=== PATIENT | male | born 1945 | race Caucasian/White ===

== ENCOUNTER 2019-04-17 06:42 | Day surgery (SDC) | payer MEDICARE ==
[2019-04-14 09:22] VITALS: BMI 32.5
[2019-04-17 07:39] LABS: #Basophils 0.1 thou/uL (0.0-0.2); #Eosinphils 0.1 thou/uL (0.0-0.7); #Lymphocytes 2.4 thou/uL (1.20-3.40); #Monocytes 0.4 thou/uL (0.11-0.59); #Neutrophils 7.2 thou/uL (1.40-6.50); %Basophils 0.6 % (0.0-1.0); %Eosinophils 1.3 % (0.0-10.0); %Lymphocytes 23.3 % (21.0-51.0); %Neutrophils 70.8 % (42.0-75.0); Mean Corpuscular HGB CONC 33.1 g/dL (32.0-36.0); Mean Corpuscular Hemoglobin 30.7 pg (27.0-31.0); Mean Corpuscular Volume 92.9 fL (78.0-98.0); Platelet Count 255 thou/uL (130-400); RBC Distribution Width 12.1 % (11.5-14.5); Red Blood Cell (RBC) Count 5.21 mill/uL (4.70-6.10); White Blood Cell (WBC) Count 10.2 thou/uL (4.8-10.8)
[2019-04-17 07:50] LABS: Anion Gap 14 mmol/L (10-20); BUN (Urea Nitrogen) 10 mg/dL (8.4-25.7); Calc. Creatinine Clearance 99 mL/min (70-130); Calcium 8.6 mg/dL (7.8-10.44); Carbon Dioxide 26 mmol/L (23-31); Chloride 104 mmol/L (98-107); Estimated GFR-MDRD 79; Glucose 135 mg/dL (83-110); Potassium 4.2 mmol/L (3.5-5.1); Sodium 140 mmol/L (136-145)
[2019-04-17 07:55] LABS: PTT 30.9 SEC (22.9-36.1); Prothrombin Time 13.1 SEC (12.0-14.7)
[2019-04-17] MEDS ORDERED: Iothalamate Meglumine 60% 50 ML VIAL FS ONE (08:40)
[2019-04-17] MEDS ORDERED: Fentanyl 100 MCG/2 ML VIAL ONE ×2 (08:49→10:55)
[2019-04-17] MEDS ORDERED: mitoMYcin 40 MG in Sterile Water 20 ML IV SCH (09:30)
--- NOTE | 2019-04-17 09:58 | RAD ---
EXAM: XR IVP Retrograde PROVIDED CLINICAL HISTORY: Bladder tumor/hematuria. COMPARISON: None FINDINGS: Bilateral retrograde urograms are performed. There is a filling defect seen within the mid right uret er which may represent a gas bubble. However, no additional imaging was obtained to evaluate for movement or resolution of this filling defect. The bilateral renal collecting systems and ureters oth erwise demonstrate a normal appearance without additional filling defect, and there is no hydronephrosis or hydroureter. There is only minimal opacification of the urinary bladder. IMPRESSION: Small filling defect in the mid right ureter probably related to a gas bubble, but additional imaging was not performed to confirm this finding. There is no hydronephrosis or hydroureter, and the bilateral renal collecting systems and ureters otherwise have a normal appearance. Correlation with i ntraoperative findings is recommended.
[2019-04-17] MEDS ORDERED: Glycopyrrolate 0.2 MG/ML 5 ML SYRINGE ONE (10:06)
[2019-04-17] MEDS ORDERED: PROPOFOL 200 MG/20 ML VIAL ONE (10:06)
[2019-04-17] MEDS ORDERED: Rocuronium Bromide 10 MG/ML (10ML VIAL) ONE (10:06)
[2019-04-17] MEDS ORDERED: Ondansetron PF 4 MG/2 ML Vial ONE (10:06)
[2019-04-17] MEDS ORDERED: Lidocaine 1% PF 5 ML VIAL ONE (10:06)
[2019-04-17] MEDS ORDERED: Morphine 4 MG/ML VIAL ONE (11:45)
[2019-04-17] MEDS ORDERED: Morphine 2 MG/ML SYRINGE ONE (12:18)
[2019-04-17] MEDS ORDERED: HYDROcodone/Acetaminophen 5/325 mg Tablet ONE (12:45)
--- NOTE | 2019-04-17 15:31 | OP ---
DATE OF PROCEDURE: 04/17/2019 PREOPERATIVE DIAGNOSIS: Bladder lesion. POSTOPERATIVE DIAGNOSIS: Bladder lesion. PROCEDURE PERFORMED: Cysto transurethral resection of a bladder tumour, bilateral retrogrades, and exam under anesthesia. ANESTHETIC: General. ESTIMATED BLOOD LOSS: Less than 50. DRAINS: An 18-[place] Ravi catheter three way with both plugged at the end of the case as we placed mitomycin-C. FINDINGS: A 3 cm papillary tumor coming off the left sidewall just lateral to the left ureteral orifice, but not involving it. Retrograde studies were normal. Path sent is bladder tumor, superficial and deep. FINDINGS: Normal retrograde studies, normal exam under anesthesia. DESCRIPTION OF PROCEDURE: Obtained written and verbal consent from the patient after receiving IV antibiotics. He was taken to the operating suite. He was placed in the supine position on the treatment table. PlexiPulses were placed in his lower extremities and turned on. He was given a general anesthetic and oral intubation. He was placed in the dorsal lithotomy position and sterilely prepped and draped. The fluoroscopy unit was brought in and positioned over his abdomen for retrograde studies. Cystoscopy was performed with a 22-[place] sheath. This was well lubricated and advanced under direct vision through the male urethra into the urinary bladder with the aid of a 30-degree lens and a video camera and monitor. The bladder was filled and emptied number of times and examined with both the 30 and the 70-degree lens with the findings above. I could not see the left ureteral orifice because of tumor draped over it. The instruments were removed. A 24-[place] resectoscope sheath with visual obturator was passed well lubricated through the male urethra into the bladder with the aid of a 30-degree lens and video camera and monitor. An REHAPP resectoscope with the Gyrus generator and Gyrus bladder tumor loop were brought in. We used a 30-degree lens and a video camera and monitor. We resected this tumor back so it was level with the bladder wall and then the Ellik'd this specimen out and sent as superficial tumor. The left ureteral orifice was identified and was not involved with the tumor. There was a good probably 2 cm of normal tissue between it. We then resected some deep specimens and sent these off as deep. We cauterized to obtain hemostasis. We then removed these instruments and went back to the 22-[place] sheath and was replaced back through the male urethra into the bladder. We brought in a cone-tipped catheter, flushed with contrast and shot a left retrograde study and a right retrograde study using about 10 to 12 mL of contrast each obtained drainage films. There was good hemostasis. A Ravi catheter was placed. We irrigated it out with some sterile water. It was clear. Then, we passed the mitomycin C through this catheter and plugged both it and the irrigation port and leave them plugged until he gets to the recovery room in about 30 minutes or so after unplugged. Rectal exam was done. He had noticed 3 dimensional mass in the bladder. He had a benign feeling prostate that was enlarged without nodularity. He was taken out of the dorsal lithotomy position, awakened, extubated, and taken by stretcher to the recovery room. Job ID: [id number]
--- NOTE | 2019-04-17 23:30 | EKG ---
Test Reason : PREOP Blood Pressure : / mmHG Vent. Rate : 052 BPM Atrial Rate : 052 BPM P-R Int : 170 ms QRS Dur : 086 ms QT Int : 460 ms P-R-T Axes : 034 -31 048 degrees QTc Int : 427 ms Sinus bradycardia Left axis deviation Abnormal ECG When compared with ECG of 30-AUG-2010 12:05, T wave inversion no longer evident in Anterior leads Confirmed by Aparna GANDARA ([id number]) on 04/17/2019 11:29:32 PM Referred By: ROCÍO Confirmed By:Aparna GANDARA
== END 2019-04-17 14:05 | disposition home or self-care (01) ==
LOC: SDC 06:42
PROVIDERS: ATTEND Urology
PROC: 0TBB8ZX Excision of Bladder, Via Natural or Artificial Opening Endoscopic, Diagnostic (ICD-10-PCS; principal; 2019-04-17)
PROC: BT141ZZ Fluoroscopy of Kidneys, Ureters and Bladder using Low Osmolar Contrast (ICD-10-PCS; 2019-04-17)
DX: C67.2 Malignant neoplasm of lateral wall of bladder (principal); J44.9 Chronic obstructive pulmonary disease, unspecified; F17.200 Nicotine dependence, unspecified, uncomplicated; Z86.73 Personal history of transient ischemic attack (TIA), and cerebral infarction without residual deficits
CPT/HCPCS: 52005; 52235; 74420; 80048; 85025; 85610; 85730; 88307; 93005; C1758; J9280; 36415; 93010; J0690; J2001; J2270; J2405; J2704; J3010

== ENCOUNTER 2019-08-24 06:36 | Outpatient (CLI) | payer MEDICARE, OTHER ==
[2019-08-24 14:30] LABS: Mean Corpuscular HGB CONC 33.8 g/dL (32.0-36.0); Mean Corpuscular Hemoglobin 32.5 pg (27.0-31.0); Mean Platelet Volume 7.9 fL (7.4-10.4); Platelet Count 215 thou/uL (130-400); RBC Distribution Width 12.1 % (11.5-14.5); Red Blood Cell (RBC) Count 4.92 mill/uL (4.70-6.10); White Blood Cell (WBC) Count 8.5 thou/uL (4.8-10.8)
[2019-08-24 14:46] LABS: PTT 30.4 sec (22.9-36.1); Prothrombin Time 12.8 sec (12.0-14.7)
[2019-08-24 14:52] LABS: Anion Gap 10 mmol/L (10-20); BUN (Urea Nitrogen) 10 mg/dL (8.4-25.7); Calc. Creatinine Clearance 0 mL/min (70-130); Calcium 8.8 mg/dL (7.8-10.44); Carbon Dioxide 29 mmol/L (23-31); Chloride 103 mmol/L (98-107); Estimated GFR-MDRD 78; Glucose 94 mg/dL (83-110); Potassium 4.1 mmol/L (3.5-5.1); Sodium 138 mmol/L (136-145)
[2019-08-25 11:17] LABS: SARS-CoV-2 MS2 Positive; SARS-CoV-2 N Gene Negative; SARS-CoV-2 S Gene Negative; SARS-CoV-2 orf1ab Negative
== END 2019-08-24 06:37 | disposition home or self-care (01) ==
LOC: LABBT 06:36
PROVIDERS: ATTEND Urology
DX: Z01.812 Encounter for preprocedural laboratory examination (principal); Z11.59 Encounter for screening for other viral diseases; C67.9 Malignant neoplasm of bladder, unspecified
CPT/HCPCS: 80048; 85027; 85610; 85730; U0003; 87635

== ENCOUNTER 2019-08-28 05:53 | Day surgery (SDC) | payer MEDICARE ==
[2019-08-24 12:44] VITALS: BMI 31.3
[2019-08-28] MEDS ORDERED: Fentanyl 100 MCG/2 ML VIAL ONE (06:34)
[2019-08-28] MEDS ORDERED: Albuterol Sulfate 2.5 mg/3 ml Neb ONE (07:22)
--- NOTE | 2019-08-28 11:51 | OP ---
DATE OF PROCEDURE: 08/28/2019 PREOPERATIVE DIAGNOSIS: History of transitional cell carcinoma of the bladder. POSTOPERATIVE DIAGNOSIS: History of transitional cell carcinoma of the bladder. PROCEDURE PERFORMED: Cystoscopy, bladder biopsy. ANESTHETIC: General. ESTIMATED BLOOD LOSS: Minimal. FINDINGS: He had some necrotic tissue over his old tumor site on the left wall. He had 2 ureteral orifices in normal position. He had no evidence of recurrent bladder tumor. He had a moderate lateral lobe hypertrophy. DESCRIPTION OF PROCEDURE: After obtaining written and verbal consent from the patient, after receiving IV antibiotics, he was taken to the operating suite. He was placed in a supine position on the treatment table. PlexiPulses were placed on his lower extremities and turned on. He was given a general anesthetic and oral obturator intubation. He was placed in the dorsal lithotomy position and sterilely prepped and draped. Cystoscopy was performed with a 22-Amharic sheath. This was passed under direct vision through the male urethra into the bladder with a 30-degree lens and a video camera and monitor. The bladder was filled and emptied number of times and was examined with both the 30- and the 70-degree lens with the findings above. Using a 30-degree lens, we brought in some graspers and removed the necrotic tissue overlying the prior tumor site. There was some tissue that really had not healed that well in this region. We did some biopsies of this deep area, and then, we did some random bladder biopsies. Bugbee electrode to cauterize these sites. Bladder was drained. The instruments were removed. The catheter was not left indwelling. He was awakened, extubated, and taken by stretcher to recovery room. Job ID: [id number]
[2019-08-28] MEDS ORDERED: Ondansetron PF 4 MG/2 ML Vial ONE (13:35)
[2019-08-28] MEDS ORDERED: PROPOFOL 200 MG/20 ML VIAL ONE (13:35)
[2019-08-28] MEDS ORDERED: Lidocaine 1% PF 5 ML VIAL ONE (13:35)
== END 2019-08-28 11:05 | disposition home or self-care (01) ==
LOC: SDC 05:53
PROVIDERS: ATTEND Urology
PROC: 0TBB8ZX Excision of Bladder, Via Natural or Artificial Opening Endoscopic, Diagnostic (ICD-10-PCS; principal; 2019-08-28)
DX: N30.80 Other cystitis without hematuria (principal); N40.0 Benign prostatic hyperplasia without lower urinary tract symptoms; J44.9 Chronic obstructive pulmonary disease, unspecified; Z85.51 Personal history of malignant neoplasm of bladder; Z86.73 Personal history of transient ischemic attack (TIA), and cerebral infarction without residual deficits; Z79.2 Long term (current) use of antibiotics; Z79.82 Long term (current) use of aspirin; Z88.4 Allergy status to anesthetic agent
CPT/HCPCS: 88305; 93005; 93010; J0690; J2001; J2405; J2704; J3010; J7611

== ENCOUNTER 2020-03-20 14:42 | Inpatient (IN) | payer MEDICARE ==
[2020-03-20 15:59] VITALS: BMI 32.5
[2020-03-20] MEDS ORDERED: Communication Order-Pharmacy FS SCH (16:16)
--- NOTE | 2020-03-20 16:53 | RAD ---
Portable frontal chest radiograph: 03/20/2020 COMPARISON: 02/08/2020 HISTORY: Evaluate chest prior to open heart surgery FINDINGS: There is prominence of the cardiac silhouette. There is no pneumothorax or pleural fluid. N o focal consolidation or alveolar edema. Bilateral AC joint degenerative change. IMPRESSION: No radiographic evidence of acute cardiopulmonary disease.
--- NOTE | 2020-03-20 17:15 | CON ---
DATE OF CONSULTATION: HISTORY OF PRESENT ILLNESS: This is a 74-year-old gentleman with cardiovascular risk factors of smoking a pack of cigarettes a day currently as well as a history of dyslipidemia with no history of hypertension. He has been complaining of dyspnea on exertion, which has worsened, and he was evaluated by Dr. Coleman and found today on catheterization to have about 80+ percent stenosis of the LAD at the takeoff of a sizable diagonal, the ramus and circumflex were fairly normal, and the right coronary artery had diffuse disease, probably as much as 50% prior to a PDA. There may have been some ostial PDA disease. Ejection fraction was normal. PAST MEDICAL HISTORY: Includes: 1. Bladder cancer, treated by Dr. Chen, with surveillance endoscopies every 3 months. 2. He also has some COPD and uses an inhaler for occasional wheezing and he does admit to a chronic cough. 3. He also has a history of enlarged prostate, for which he takes medication and he does have nocturia x1. 4. He has a past medical history of stroke, diagnosed as vertigo at the [facility], but diagnosed as a CVA by Dr. Kennedy. He had a carotid ultrasound per Dr. Coleman in 2016, which did not show any significant disease and he has not been placed on any antiplatelet agents in the past. SOCIAL HISTORY: The patient is retired, accompanied by his . HOME MEDICATIONS: Include: 1. Inhaler. 2. Flomax 0.4 a day. 3. Atorvastatin half tablet, but he does not know the dosage, once a day. PAST SURGICAL HISTORY: Includes: 1. Removal of a lipoma from the left flank as well as a benign tumor from his right neck. 2. Previous cholecystectomy. REVIEW OF SYSTEMS: Otherwise includes chronic back pain, and because of this, he has a very sedentary lifestyle. He does admit to cough and nocturia x1. No significant weakness related to his stroke at this time. PHYSICAL EXAMINATION: GENERAL: On examination, he is an alert and cooperative gentleman, overweight. NECK: No carotid bruits on exam. CARDIAC: Regular rate and rhythm with no murmurs. LUNGS: Clear to auscultation anteriorly, but his chest AP diameter is increased. ABDOMEN: Obese, firm, and nontender and he does have a small probably 1 cm sized hernia in the right rectus area about 3 to 4 cm below the tip of the xiphoid, which is easily reducible. EXTREMITIES: He has palpable femoral and popliteal pulses and I do not appreciate pedal pulses. He has no peripheral edema. PLAN: At this time is for coronary bypass grafting to the LAD, diagonal, and PDA tomorrow. Job ID: [id number]
--- NOTE | 2020-03-20 17:46 | PDOC.HHP ---
Hospitalist HPI - History of Present Illness Shortness of breath History of Present Illness: Patient is a pleasant 74-year-old gentleman who was seen in the hospital as a direct admission. He has been having shortness of breath over the last couple of months. The shortness of breath has been worsening. Shortness of breath is worse with exertion. Patient denies any chest pain. He denies any nausea or vomiting. He denies any abdominal pain. He underwent coronary angiography today and was found to have severe coronary artery disease. I received a call from his metal baler earlier today, and patient is being admitted to the hospital as a direct admission for coronary artery bypass graft surgery. Hospitalist ROS - Review of Systems Respiratory: reports: shortness of breath, SOB with excertion. denies: cough, dry, hemoptysis, pleuritic pain, sputum, wheezing Cardiovascular: denies: chest pain, palpitations, orthopnea, paroxysmal noc. dyspnea, edema, light headedness All other systems reviewed; all pertinent +/- noted in HPI/Subj - Medication Medications: Allergies: Procaine and penicillin Home medications: Albuterol inhalation as needed, atorvastatin 40 mg daily, aspirin 81 mg daily and Flomax 0.4 mg daily. Hospitalist History - Past Medical History Other Medical History: Past medical history: Dyslipidemia, COPD, benign prostate hypertrophy, cerebrovascular accident, TIA x2, shingles as a teenager, bladder cancer status post resection Surgical history: Surgery for bladder cancer, cholecystectomy, cataract surgery and parotid tumor surgery. Family history: Coronary artery disease in his father, who from pancreatic cancer. Paternal grandfather had CVA. Social history: Patient is a current smoker. He denies alcohol use or recreational drug use. - Exam General Appearance: awake alert Eye: anicteric sclera ENT: moist mucosa Neck: supple Heart: RRR Respiratory: CTAB Gastrointestinal: soft, non-tender Skin: no rashes Psychiatric: normal affect, normal behavior Hospitalist Results - EKG Interpretation EKG: Normal sinus rhythm on telemetry. Hospitalist H&P A/P - Problem (1) Shortness of breath Code(s): R06.02 - SHORTNESS OF BREATH Status: Acute (2) Coronary artery disease Code(s): I25.10 - ATHSCL HEART DISEASE OF [place] CORONARY ARTERY W/O ANG PCTRS Status: Acute (3) Dyslipidemia Code(s): E78.5 - HYPERLIPIDEMIA, UNSPECIFIED Status: Chronic (4) Benign prostatic hyperplasia Code(s): N40.0 - BENIGN PROSTATIC HYPERPLASIA WITHOUT LOWER URINRY TRACT SYMP Status: Chronic (5) COPD (chronic obstructive pulmonary disease) Status: Chronic - Plan Plan: Patient to have coronary artery bypass graft tomorrow, March 21, 2020. I will check COVID-19 test prior to the procedure. Continue aspirin. CV surgery service has been consulted and has already seen the patient. Continue atorvastatin 40 mg at bedtime. Continue Flomax 0.4 mg daily. Further management based on surgery tomorrow. Many thanks for allowing me to participate in your patient's care. Please feel free to contact me with any questions or concerns. Level of risk: Moderate Level of complexity: Moderate Estimated length of stay in the hospital: Greater than 2 midnights.
[2020-03-20 18:29] LABS: #Eosinphils 0.2 thou/uL (0.0-0.7); #Lymphocytes 2.6 thou/uL (1.20-3.40); #Monocytes 0.4 thou/uL (0.11-0.59); #Neutrophils 6.2 thou/uL (1.40-6.50); %Basophils 0.5 % (0.0-1.0); %Eosinophils 1.8 % (0.0-10.0); %Lymphocytes 27.8 % (21.0-51.0); %Monocytes 4.4 % (0.0-10.0); %Neutrophils 65.5 % (42.0-75.0); Hemoglobin 15.2 g/dL (14.0-18.0); Mean Corpuscular Hemoglobin 31.4 pg (27.0-31.0); Mean Platelet Volume 7.1 fL (7.4-10.4); Platelet Count 190 thou/uL (130-400); RBC Distribution Width 12.3 % (11.5-14.5); Red Blood Cell (RBC) Count 4.85 mill/uL (4.70-6.10); White Blood Cell (WBC) Count 9.4 thou/uL (4.8-10.8)
[2020-03-20 18:35] LABS: PTT 29.5 sec (22.9-36.1); Prothrombin Time 13.8 sec (12.0-14.7)
[2020-03-20 18:54] LABS: ALT (SGPT) 13 U/L (8-55); AST (SGOT) 17 U/L (5-34); Albumin 3.7 g/dL (3.4-4.8); Alkaline Phosphatase 103 U/L (40-110); Anion Gap 13 mmol/L (10-20); BUN (Urea Nitrogen) 11 mg/dL (8.4-25.7); Bilirubin, Total 0.7 mg/dL (0.2-1.2); Calc. Creatinine Clearance 109 mL/min (70-130); Calcium 8.3 mg/dL (7.8-10.44); Carbon Dioxide 29 mmol/L (23-31); Chloride 104 mmol/L (98-107); Globulin 2.7 g/dL (2.4-3.5); Glucose 116 mg/dL (83-110); Potassium 3.7 mmol/L (3.5-5.1); Protein, Total 6.4 g/dL (5.8-8.1); Sodium 142 mmol/L (136-145)
[2020-03-20 19:18] LABS: SARS-CoV-2 NAA Rapid Test Not Detected (NotDetected)
[2020-03-20] MEDS ORDERED: Sodium Chloride 0.9% (PF) 10 ML VIAL FS PRN (20:15)
[2020-03-20] MEDS ORDERED: Atorvastatin Calcium 20 MG TAB PO SCH (21:00)
[2020-03-20] MEDS ORDERED: Pantoprazole 40 MG VIAL IVP SCH (23:30)
[2020-03-21 05:06] LABS: #Basophils 0.1 thou/uL (0.0-0.2); #Eosinphils 0.2 thou/uL (0.0-0.7); #Lymphocytes 2.6 thou/uL (1.20-3.40); #Monocytes 0.6 thou/uL (0.11-0.59); #Neutrophils 6.8 thou/uL (1.40-6.50); %Basophils 1.2 % (0.0-1.0); %Eosinophils 1.7 % (0.0-10.0); %Monocytes 5.5 % (0.0-10.0); %Neutrophils 66.5 % (42.0-75.0); Hemoglobin 14.3 g/dL (14.0-18.0); Mean Corpuscular HGB CONC 32.8 g/dL (32.0-36.0); Mean Corpuscular Hemoglobin 30.9 pg (27.0-31.0); Mean Corpuscular Volume 94.4 fL (78.0-98.0); Mean Platelet Volume 7.7 fL (7.4-10.4); Platelet Count 200 thou/uL (130-400); RBC Distribution Width 12.3 % (11.5-14.5); Red Blood Cell (RBC) Count 4.63 mill/uL (4.70-6.10); White Blood Cell (WBC) Count 10.2 thou/uL (4.8-10.8)
[2020-03-21 05:27] LABS: Anion Gap 15 mmol/L (10-20); BUN (Urea Nitrogen) 11 mg/dL (8.4-25.7); Calc. Creatinine Clearance 116 mL/min (70-130); Calcium 8.2 mg/dL (7.8-10.44); Carbon Dioxide 24 mmol/L (23-31); Chloride 104 mmol/L (98-107); Glucose 102 mg/dL (83-110); Potassium 3.8 mmol/L (3.5-5.1); Sodium 139 mmol/L (136-145)
[2020-03-21] MEDS ORDERED: Albumin 5% 500 ML ONE (06:34)
[2020-03-21] MEDS ORDERED: Midazolam HCl 5 mg/5 ml Vial ONE (06:51)
[2020-03-21] MEDS ORDERED: Fentanyl 250 MCG/5 ML VIAL ONE (06:51)
[2020-03-21] MEDS ORDERED: Midazolam HCl 2 mg/2 ml Vial ONE (06:51)
[2020-03-21] MEDS ORDERED: Heparin 10,000 UNITS/1 ML VIAL 30,000 UNITS in Sodium Chloride 0.9% 1,000 ML FS SCH (07:00)
[2020-03-21] MEDS ORDERED: PHENYLEPHRINE-NS 100 MCG/ML 10 ML SYRINGE ONE (08:28)
[2020-03-21] MEDS ORDERED: Aspirin 81 mg Enteric Coated Tablet PO SCH (09:00)
[2020-03-21] MEDS ORDERED: Pantoprazole 40 MG VIAL IVP SCH (09:00)
[2020-03-21] MEDS ORDERED: Albuterol Sulfate HFA (OR ONLY) ONE ×2 (10:25→12:16)
[2020-03-21] MEDS ORDERED: niCARdipine 25 MG in Sodium Chloride 0.9% 250 ML 250 ML IVPB PRN (11:58)
[2020-03-21] MEDS ORDERED: DOPamine 400 MG/D5W 250 ML 250 ML IVPB PRN (11:58)
[2020-03-21] MEDS ORDERED: Bisacodyl 5 MG TAB PO PRN (11:58)
[2020-03-21] MEDS ORDERED: Bisacodyl 10 MG SUPP PR PRN (11:58)
[2020-03-21] MEDS ORDERED: Potassium Chloride 20 MEQ/100 ML PREMIX BAG IVPB PRN (11:58)
[2020-03-21] MEDS ORDERED: Morphine 2 MG/ML VIAL SLOW IVP PRN (11:58)
[2020-03-21] MEDS ORDERED: Guaifenesin DM 100-10/5 ML UDCUP PO PRN (11:58)
[2020-03-21] MEDS ORDERED: Acetaminophen 325 MG TAB PO PRN (11:58)
[2020-03-21] MEDS ORDERED: Ondansetron PF 4 MG/2 ML Vial IVP PRN (11:58)
[2020-03-21] MEDS ORDERED: Mag-Al 1200 mg/1200 mg/30 ML UDCUP PO PRN (11:58)
[2020-03-21] MEDS ORDERED: Post-Op Insulin Drip Protocol IVPB ONE (11:58)
[2020-03-21] MEDS ORDERED: hydrALAZINE 20 MG/ML VIAL SLOW IVP PRN (11:58)
[2020-03-21] MEDS ORDERED: Promethazine HCl 25 MG/ML VIAL IM PRN (11:58)
[2020-03-21] MEDS ORDERED: Fentanyl 100 MCG/2 ML VIAL SLOW IVP PRN ×2 (11:58)
[2020-03-21] MEDS ORDERED: Nitroglycerin 50 MG/250 ML BOT 250 ML IVPB PRN (11:58)
[2020-03-21] MEDS ORDERED: Hetastarch 6% 500 ML 500 ML IVPB PRN (11:58)
[2020-03-21] MEDS ORDERED: Magnesium 2 GM/50 ML 2 GM in Premix Bag 1 BAG IVPB SCH (12:00)
[2020-03-21] MEDS ORDERED: Thrombin 5000 UNITS/5 ML VIAL ONE (12:16)
[2020-03-21] MEDS ORDERED: PROPOFOL 200 MG/20 ML VIAL ONE (12:16)
[2020-03-21] MEDS ORDERED: Labetalol HCl 100 MG/20 ML VIAL ONE ×2 (12:16→12:41)
[2020-03-21] MEDS ORDERED: DOPamine 400 MG/10 ML VIAL ONE (12:16)
[2020-03-21] MEDS ORDERED: Lidocaine 2% PF 100 mg/5 ml Syringe ONE (12:16)
[2020-03-21] MEDS ORDERED: Vecuronium 10 MG VIAL ONE (12:16)
[2020-03-21] MEDS ORDERED: Cardioplegic Soln 1,000 ML BAG ONE (12:16)
[2020-03-21] MEDS ORDERED: Heparin 30,000 units/30 ml VIAL ONE (12:16)
[2020-03-21] MEDS ORDERED: Sodium Bicarb 50 MEQ/50 ML Abboject 8.4% SYRINGE ONE (12:16)
[2020-03-21] MEDS ORDERED: Calcium Chloride 1 GM/10 ML Abboject SYRINGE ONE (12:18)
[2020-03-21 12:20] LABS: #Eosinphils 0.1 thou/uL (0.0-0.7); #Lymphocytes 2.2 thou/uL (1.20-3.40); #Monocytes 0.7 thou/uL (0.11-0.59); #Neutrophils 16.1 thou/uL (1.40-6.50); %Basophils 0.2 % (0.0-1.0); %Eosinophils 0.6 % (0.0-10.0); %Lymphocytes 11.5 % (21.0-51.0); %Monocytes 3.5 % (0.0-10.0); %Neutrophils 84.2 % (42.0-75.0); Hemoglobin 11.7 g/dL (14.0-18.0); Mean Corpuscular HGB CONC 33.1 g/dL (32.0-36.0); Mean Corpuscular Hemoglobin 31.6 pg (27.0-31.0); Mean Corpuscular Volume 95.4 fL (78.0-98.0); RBC Distribution Width 12.2 % (11.5-14.5); Red Blood Cell (RBC) Count 3.68 mill/uL (4.70-6.10); White Blood Cell (WBC) Count 19.1 thou/uL (4.8-10.8)
[2020-03-21 12:23] LABS: INR-International Normal Ratio 1.5; PTT 30.9 sec (22.9-36.1); Prothrombin Time 18.6 sec (12.0-14.7)
[2020-03-21] MEDS ORDERED: Morphine 4 MG/ML VIAL ONE (12:36)
[2020-03-21] MEDS ORDERED: Nitroglycerin 50 MG/250 ML BOT 250 ML ONE (12:36)
[2020-03-21 12:40] LABS: MDiff Complete? YES; Platelet Morphology Comment Appears Decreased; Polychromasia SLIGHT = 2-3 cells (100X) (0-2/hpf)
[2020-03-21 12:41] LABS: Mean Platelet Volume 7.1 fL (7.4-10.4); Platelet Count 118 thou/uL (130-400)
[2020-03-21 12:42] LABS: Anion Gap 11 mmol/L (10-20); BUN (Urea Nitrogen) 9 mg/dL (8.4-25.7); Calc. Creatinine Clearance 123 mL/min (70-130); Calcium 7.4 mg/dL (7.8-10.44); Carbon Dioxide 21 mmol/L (23-31); Chloride 112 mmol/L (98-107); Glucose 172 mg/dL (83-110); Sodium 140 mmol/L (136-145)
[2020-03-21] MEDS ORDERED: Dextrose 50% Abboject 50 ML SYRINGE SLOW IVP PRN (13:00)
[2020-03-21] MEDS ORDERED: Insulin Regular 300 UNITS/3 ML VIAL SC PRN (13:00)
[2020-03-21] MEDS ORDERED: Dextrose 5% in Water 1,000 ML IV PRN (13:00)
[2020-03-21] MEDS ORDERED: HUMULIN R 100 UNITS in Sodium Chloride 0.9% 100 ML IVPB SCH (13:00)
--- NOTE | 2020-03-21 13:06 | RAD ---
PORTABLE CHEST: HISTORY: Postop open heart surgery. COMPARISON: Prior day's study. FINDINGS: Endotracheal tube is now present in good position. Right subclavian line is seen with the tip overly ing the right superior vena cava/right atrium junction. Post sternotomy changes are now present. IMPRESSION: Post sternotomy change. Endotracheal tube is in satisfactory position. POS: AH
[2020-03-21] MEDS: Lactated Ringer's 1,000 ML IV SCH (13:11)
[2020-03-21 13:19] LABS: Actual Bicarbonate (HCO3a) 21.3 mEq/L (22-28); Base Excess (BEa) -5.9 mEq/L (-2.0 to +3.0); Calcium, Ionized (arterial) 1.15 mmol/L (1.12-1.30); Carboxyhemoglobin (COHb) 0.1 gm% (0.0-3.0); Hemoglobin (Hb) 12.1 g/dL (14.0-18.0); O2 Tension (PaO2), arterial 148.8 mmHg (> 70.0); Potassium - ABG Lab 3.93 mmol/L (3.70-5.30); pH, Arterial 7.26 (7.35-7.45)
[2020-03-21 13:20] LABS: Puncture Site Arterial Line
--- NOTE | 2020-03-21 14:23 | OP ---
DATE OF PROCEDURE: 03/21/2020 PREOPERATIVE DIAGNOSIS: Coronary artery disease. POSTOPERATIVE DIAGNOSES: Coronary artery disease with chronic obstructive pulmonary disease and obesity. PROCEDURES PERFORMED: Coronary artery bypass graft x3, large left internal mammary artery to a 1.5 mm LAD, saphenous vein graft to a 1.5 mm diagonal and a 1.5 mm PDA. LOSS PREVENTION ASSOCIATE: Dr. Mckeon. TRANSFUSION: None. FINDINGS: The patient had bilateral hyperinflated lungs that did not deflate well and required albuterol inhaler during the case. DESCRIPTION OF PROCEDURE: After adequate anesthesia had been obtained, Dr. Mckeon did an endovascular vein harvest of the left greater saphenous vein, while I performed a median sternotomy. The left internal mammary artery was harvested without entering the pleura. Large amount of thymic fat was excised from the left side of the mediastinum to allow access to the aorta. The aorta had cannulation sutures placed and attempts to place the catheter were abandoned after it appeared to be plaque at the level of cannulation, although it could not be palpated, and the knife blade clearly was hitting a plaque. Two pursestring sutures were oversewn and a separate site was chosen for cannulation without difficulty. Right atrium was cannulated and cardiopulmonary bypass was begun. The aorta was cross-clamped and a liter of cold blood cardioplegia was given through the aortic root and the three distal anastomoses completed. Following this, the two proximal anastomoses were performed with 5-0 Prolene suture and marked with rings and then the cross-clamp was removed after de-airing. Mediastinal drains x2 were placed and temporary atrial and ventricular wires were placed for asystole that resolved after about 10 minutes. The patient was weaned from cardiopulmonary bypass, and there was significant bleeding coming from the aortic cannulation site, and this was repaired with vein pledgeted Prolene sutures x2 with good result. It was noted that there was about a 15 to 20 mm gradient between the radial artery in the reading in the right arm and in the central aortic pressure. The sternum was then reapproximated with a combination of #7 interrupted wires and three zip ties. Platelet rich blood and platelet-poor plasma as well as vancomycin paste were used on the sternal edges. Subcutaneous tissue and skin were closed in layers and the patient is to be taken to the ICU in guarded condition. Job ID: [id number]
[2020-03-21] MEDS: CEFAZOLIN 2 GM in Premix Bag 1 BAG IVPB SCH ×2 (15:29→23:59)
--- NOTE | 2020-03-21 16:16 | PDOC.HOSPP ---
- Subjective Encounter Date: 03/21/20 Encounter Time: 16:14 Subjective: Seen for follow-up regarding coronary artery disease. He is currently intubated, could not complete review of systems. - Objective Vital Signs & Weight: Vital Signs (12 hours) Temp Pulse Resp BP Pulse Ox 03/21/20 14:29 64 100/45 L 03/21/20 13:20 12 03/21/20 13:16 75 12 97 03/21/20 13:12 76 139/55 L 03/21/20 12:18 76 139/55 L 03/21/20 12:00 97.6 F 98 Weight Weight 215 lb 6.4 oz Most Recent Monitor Data Heart Rate from ECG 68 NIBP 104/63 NIBP BP-Mean 76 Respiration from ECG 19 SpO2 100 I&O: 03/20/20 03/21/20 03/22/20 06:59 06:59 06:59 Output Total 515 Balance -515 Result Diagrams: 03/21/20 12:06 03/21/20 12:06 Additional Labs: Accuchecks 03/21/20 03/21/20 09:35 08:53 POC Glucose 122 H 132 H EKG Reviewed by me: Yes (Telemetry shows normal sinus rhythm) Hospitalist ROS - Review of Systems ROS unobtainable: due to endotracheal tube - Medication Medications: Active Medications Generic Name Dose Route Start Last Admin Trade Name Freq PRN Reason Stop Dose Admin Albuterol/Ipratropium 3 ml 03/21/20 13:00 03/21/20 13:16 Ipratropium/Albuterol Sulfate 3 Ml Neb NEB 3 ml [id number] ANDREA Administration Cefazolin Sodium/Dextrose 2 gm 50 mls @ 100 mls/hr 03/21/20 15:00 03/21/20 15:29 / Device IVPB 03/22/20 07:29 50 mls 0700,1500,2300 ANDREA Administration Nitroglycerin/Dextrose 250 mls @ 0 mls/hr 03/21/20 11:58 03/21/20 12:45 Nitroglycerin 50 Mg/250 Ml Bot IVPB 250 mls PRN PRN Administration To Maintain SBP< 140mmHG Protocol Titrate Lactated Ringer's 1,000 mls @ 75 mls/hr 03/21/20 12:00 03/21/20 13:11 Lactated Ringer's IV 1,000 mls .[id number] ANDREA Administration Insulin Human Regular 100 101 mls @ 0 mls/hr 03/21/20 13:00 03/21/20 13:11 units/ Sodium Chloride IVPB 101 mls INF ANDREA Administration Protocol As Directed Ondansetron HCl 4 mg 03/21/20 11:58 03/21/20 13:47 Ondansetron Pf 4 Mg/2 Ml Vial IVP 4 mg Q6H PRN Administration Nausea/Vomiting - Exam General - other findings: Obese, intubated ENT: moist mucosa Neck: no thyromegaly Heart: RRR Respiratory: CTAB Gastrointestinal: soft, non-tender Skin: no rashes Psychiatric - other findings: Unable to assess Hosp A/P (1) Coronary artery disease Code(s): I25.10 - ATHSCL HEART DISEASE OF [place] CORONARY ARTERY W/O ANG PCTRS Status: Acute (2) Dyslipidemia Code(s): E78.5 - HYPERLIPIDEMIA, UNSPECIFIED Status: Chronic (3) Benign prostatic hyperplasia Code(s): N40.0 - BENIGN PROSTATIC HYPERPLASIA WITHOUT LOWER URINRY TRACT SYMP Status: Chronic (4) COPD (chronic obstructive pulmonary disease) Status: Chronic - Plan Status post coronary artery bypass graft today. Continue aspirin 325 mg daily and Lipitor 10 mg at bedtime. Extubate when clinically stable.
[2020-03-21 18:02] LABS: Hemoglobin 13.1 g/dL (14.0-18.0)
[2020-03-21 18:11] LABS: Potassium 4.1 mmol/L (3.5-5.1)
[2020-03-21] MEDS: HYDROcodone/Acetaminophen 5/325 mg Tablet PO PRN (18:20)
[2020-03-21] MEDS: Famotidine/PF 20 mg/2ml Vial SLOW IVP SCH (20:36)
[2020-03-21] MEDS ORDERED: Atorvastatin Calcium 10 MG TAB PO SCH (21:00)
[2020-03-22] MEDS: HYDROcodone/Acetaminophen 5/325 mg Tablet PO PRN ×4 (01:40→22:38)
[2020-03-22] MEDS: Lactated Ringer's 1,000 ML IV SCH (03:00)
[2020-03-22 04:41] LABS: #Eosinphils 0.1 thou/uL (0.0-0.7); #Lymphocytes 1.5 thou/uL (1.20-3.40); #Monocytes 0.9 thou/uL (0.11-0.59); #Neutrophils 12.5 thou/uL (1.40-6.50); %Basophils 0.2 % (0.0-1.0); %Eosinophils 0.6 % (0.0-10.0); %Lymphocytes 10.2 % (21.0-51.0); %Neutrophils 83.1 % (42.0-75.0); Hemoglobin 12.2 g/dL (14.0-18.0); Mean Corpuscular HGB CONC 33.5 g/dL (32.0-36.0); Mean Corpuscular Hemoglobin 32.2 pg (27.0-31.0); Mean Corpuscular Volume 96.1 fL (78.0-98.0); Mean Platelet Volume 5.8 fL (7.4-10.4); Platelet Count 126 thou/uL (130-400); RBC Distribution Width 12.3 % (11.5-14.5); White Blood Cell (WBC) Count 15.1 thou/uL (4.8-10.8)
[2020-03-22 04:55] LABS: Anion Gap 10 mmol/L (10-20); BUN (Urea Nitrogen) 11 mg/dL (8.4-25.7); Calc. Creatinine Clearance 108 mL/min (70-130); Calcium 7.4 mg/dL (7.8-10.44); Carbon Dioxide 27 mmol/L (23-31); Chloride 107 mmol/L (98-107); Glucose 115 mg/dL (83-110); Potassium 4.1 mmol/L (3.5-5.1); Sodium 140 mmol/L (136-145)
[2020-03-22] MEDS: CEFAZOLIN 2 GM in Premix Bag 1 BAG IVPB SCH (06:14)
--- NOTE | 2020-03-22 09:44 | PRG ---
DATE OF SERVICE: 03/22/2020 The patient is now postoperative day 1 from coronary bypass grafting. He is sitting up in the chair this morning comfortably without nasal cannula on oxygen on at the moment. His lungs are clear. Vital signs are stable with a heart rate in the high 60s and blood pressure of 115. His chest tube output is 250 mL since surgery. His hemoglobin is 12. Electrolytes are good. His chest x-ray is clear. Plan at this time is to go ahead and move him to the telemetry floor. Job ID: [id number]
[2020-03-22] MEDS ORDERED: Mag-Al 1200 mg/1200 mg/30 ML UDCUP PO PRN (09:56)
[2020-03-22] MEDS ORDERED: Bisacodyl 5 MG TAB PO PRN (09:56)
[2020-03-22] MEDS ORDERED: Nitroglycerin 0.4 MG TAB (25 Tab Bottle) SL PRN (09:56)
[2020-03-22] MEDS ORDERED: Bisacodyl 10 MG SUPP PR PRN (09:56)
[2020-03-22] MEDS ORDERED: Mineral Oil ENEMA PR PRN (09:56)
--- NOTE | 2020-03-22 10:03 | RAD ---
EXAM: Chest one view: HISTORY: Postop open heart follow-up COMPARISON: 03/21/2020 FINDINGS: Endotracheal tube is been removed. Minimal stable increased markings bilaterally with decreased inspi ration. Heart size: Within normal limits. Lungs: Clear of acute process. No evidence for confluent lobar pneumonia, significant pleural effusion, acute edema, or pneumothorax , or other significant acute process. IMPRESSION: Stable appearing postoperative changes. No pneumothorax or other new process.
[2020-03-22] MEDS: Polyethylene Glycol 3350 17 GM Packet PO SCH (10:15)
[2020-03-22] MEDS: Aspirin 325 MG TAB PO SCH (10:16)
[2020-03-22] MEDS: Famotidine/PF 20 mg/2ml Vial SLOW IVP SCH (13:36)
--- NOTE | 2020-03-22 15:16 | PDOC.HOSPP ---
- Subjective Encounter Date: 03/22/20 Encounter Time: 10:00 Subjective: Seen for follow-up regarding coronary artery disease. Reports soreness at the surgical site but otherwise feels okay. - Objective Vital Signs & Weight: Vital Signs (12 hours) Temp Pulse Pulse Pulse Resp BP BP 03/22/20 14:02 76 16 03/22/20 13:31 73 78 128/65 139/58 L 03/22/20 11:45 97.1 F L 82 17 03/22/20 08:00 03/22/20 07:20 65 18 03/22/20 07:19 03/22/20 04:00 98.8 F BP Pulse Ox 03/22/20 14:02 03/22/20 13:31 03/22/20 11:45 141/65 H 100 03/22/20 08:00 98 03/22/20 07:20 97 03/22/20 07:19 96 03/22/20 04:00 Weight Weight 209 lb 14.081 oz Most Recent Monitor Data Heart Rate from ECG 70 NIBP 111/55 NIBP BP-Mean 73 Respiration from ECG 24 SpO2 100 I&O: 03/21/20 03/22/20 03/23/20 06:59 06:59 06:59 Intake Total 3490.7 Output Total 1293 180 Balance 2197.7 -180 Result Diagrams: 03/22/20 04:10 03/22/20 04:10 Additional Labs: Accuchecks 03/22/20 03/22/20 03/22/20 09:58 06:16 05:15 POC Glucose 121 H 112 H 120 H 03/22/20 03/22/20 03/22/20 04:11 03:03 01:37 POC Glucose 109 H 112 H 109 H 03/22/20 03/21/20 03/21/20 00:37 23:37 22:20 POC Glucose 124 H 115 H 120 H 03/21/20 03/21/20 03/21/20 20:42 19:52 17:51 POC Glucose 110 H 112 H 138 H I reviewed patient's labs and MAR EKG Reviewed by me: Yes (Normal sinus rhythm on telemetry) Hospitalist ROS - Review of Systems Respiratory: denies: cough, dry, shortness of breath, hemoptysis, SOB with excertion, pleuritic pain, sputum, wheezing Cardiovascular: denies: chest pain, palpitations, orthopnea, paroxysmal noc. dyspnea, edema, light headedness - Medication Medications: Active Medications Generic Name Dose Route Start Last Admin Trade Name Freq PRN Reason Stop Dose Admin Hydrocodone Bitart/Acetaminophen 2 tab 03/21/20 11:58 03/22/20 05:36 Hydrocodone/Acetaminophen 5/325 Mg Tablet PO 2 tab Q4H PRN Administration Severe Pain (7-10) Albuterol/Ipratropium 3 ml 03/21/20 13:00 03/22/20 14:02 Ipratropium/Albuterol Sulfate 3 Ml Neb NEB 3 ml [id number] ANDREA Administration Aspirin 325 mg 03/22/20 09:00 03/22/20 10:16 Aspirin 325 Mg Tab PO 325 mg DAILY ANDREA Administration Ondansetron HCl 4 mg 03/21/20 11:58 03/21/20 13:47 Ondansetron Pf 4 Mg/2 Ml Vial IVP 4 mg Q6H PRN Administration Nausea/Vomiting Polyethylene Glycol 17 gm 03/22/20 09:00 03/22/20 10:15 Polyethylene Glycol 3350 17 Gm Packet PO 17 gm DAILY ANDREA Administration - Exam General - other findings: Obese ENT: normocephalic atraumatic Neck: supple Heart: RRR Respiratory: CTAB Gastrointestinal: soft, non-tender Skin: no rashes Psychiatric: normal affect, normal behavior Hosp A/P (1) Coronary artery disease Code(s): I25.10 - ATHSCL HEART DISEASE OF [place] CORONARY ARTERY W/O ANG PCTRS Status: Acute (2) Benign prostatic hyperplasia Code(s): N40.0 - BENIGN PROSTATIC HYPERPLASIA WITHOUT LOWER URINRY TRACT SYMP Status: Chronic (3) Dyslipidemia Code(s): E78.5 - HYPERLIPIDEMIA, UNSPECIFIED Status: Chronic (4) COPD (chronic obstructive pulmonary disease) Status: Chronic - Plan Status post coronary artery bypass graft today. Continue aspirin 325 mg daily and atorvastatin 10 mg at bedtime. Patient has been extubated, being transferred to telemetry floor. Cardiac rehab.
[2020-03-22] MEDS: Famotidine 20 MG TAB PO SCH (20:09)
[2020-03-22] MEDS: Atorvastatin Calcium 40 MG TAB PO SCH (20:09)
[2020-03-23] MEDS: HYDROcodone/Acetaminophen 5/325 mg Tablet PO PRN (04:55)
[2020-03-23 04:56] LABS: #Eosinphils 0.2 thou/uL (0.0-0.7); #Lymphocytes 1.7 thou/uL (1.20-3.40); #Neutrophils 10.5 thou/uL (1.40-6.50); %Basophils 0.1 % (0.0-1.0); %Eosinophils 1.6 % (0.0-10.0); %Lymphocytes 12.9 % (21.0-51.0); %Monocytes 7.2 % (0.0-10.0); %Neutrophils 78.2 % (42.0-75.0); Hemoglobin 11.5 g/dL (14.0-18.0); Mean Corpuscular HGB CONC 33.4 g/dL (32.0-36.0); Mean Corpuscular Hemoglobin 31.7 pg (27.0-31.0); Mean Platelet Volume 7.9 fL (7.4-10.4); Platelet Count 112 thou/uL (130-400); RBC Distribution Width 12.2 % (11.5-14.5); Red Blood Cell (RBC) Count 3.61 mill/uL (4.70-6.10); White Blood Cell (WBC) Count 13.5 thou/uL (4.8-10.8)
[2020-03-23 05:14] LABS: Anion Gap 12 mmol/L (10-20); BUN (Urea Nitrogen) 13 mg/dL (8.4-25.7); Calc. Creatinine Clearance 115 mL/min (70-130); Calcium 7.5 mg/dL (7.8-10.44); Carbon Dioxide 24 mmol/L (23-31); Chloride 103 mmol/L (98-107); Glucose 127 mg/dL (83-110); Potassium 4.2 mmol/L (3.5-5.1); Sodium 135 mmol/L (136-145)
[2020-03-23] MEDS: Fluticasone Propionate Nasal Spray 16 gm Bottle NASAL SCH (08:45)
[2020-03-23] MEDS: Famotidine 20 MG TAB PO SCH ×2 (08:46→20:17)
[2020-03-23] MEDS: Aspirin 325 MG TAB PO SCH (08:46)
[2020-03-23] MEDS: Potassium Chloride 10 MEQ TAB PO SCH (08:46)
[2020-03-23] MEDS: Polyethylene Glycol 3350 17 GM Packet PO SCH (08:46)
[2020-03-23] MEDS: Furosemide 40 MG TAB PO SCH (08:46)
[2020-03-23] MEDS: Tamsulosin HCl 0.4 MG CAP PO SCH (08:46)
--- NOTE | 2020-03-23 11:18 | PRG ---
DATE OF SERVICE: The patient is afebrile. Blood pressure is good at 100 to 110, heart rate is 70 to 80. He is up in the chair with no complaints. His chest tube output was minimal. His urine output has been adequate, although somewhat dark in color. His laboratory values with a creatinine of 0.76. Sugars have been well controlled. Hemoglobin has drifted slightly to 11.5. Chest dressing is dry. Pacing wires were removed with his chest tube. Continue with supportive care and no changes at present. Job ID: [id number]
--- NOTE | 2020-03-23 17:20 | PDOC.HOSPP ---
- Subjective Encounter Date: 03/23/20 Encounter Time: 12:00 Subjective: Patient seen in follow-up regarding coronary artery disease. Reports that he feels well. - Objective Vital Signs & Weight: Vital Signs (12 hours) Temp Pulse Pulse Pulse Resp BP BP 03/23/20 15:51 98.7 F 91 18 03/23/20 13:40 80 16 03/23/20 12:22 89 80 125/68 116/59 L 03/23/20 12:00 97.9 F 85 18 03/23/20 08:52 85 77 139/63 109/57 L 03/23/20 08:27 78 12 03/23/20 08:00 03/23/20 07:53 98.1 F 72 16 BP Pulse Ox 03/23/20 15:51 116/55 L 96 03/23/20 13:40 03/23/20 12:22 03/23/20 12:00 125/68 95 03/23/20 08:52 03/23/20 08:27 03/23/20 08:00 96 03/23/20 07:53 106/56 L 96 Weight Weight 220 lb 1.6 oz Most Recent Monitor Data Heart Rate from ECG 70 NIBP 111/55 NIBP BP-Mean 73 Respiration from ECG 24 SpO2 100 I&O: 03/22/20 03/23/20 03/24/20 06:59 06:59 06:59 Intake Total 3490.7 960 Output Total 1293 755 Balance 2197.7 205 Result Diagrams: 03/23/20 04:17 03/23/20 04:17 Additional Labs: Accuchecks 03/23/20 03/22/20 12:23 18:32 POC Glucose 147 H 142 H Labs and MAR reviewed by me EKG Reviewed by me: Yes (Telemetry shows normal sinus rhythm) Hospitalist ROS - Review of Systems Respiratory: denies: cough, dry, shortness of breath, hemoptysis, SOB with excertion, pleuritic pain, sputum, wheezing Cardiovascular: denies: chest pain, palpitations, orthopnea, paroxysmal noc. dys pnea, edema, light headedness - Medication Medications: Active Medications Generic Name Dose Route Start Last Admin Trade Name Freq PRN Reason Stop Dose Admin Hydrocodone Bitart/Acetaminophen 1 tab 03/21/20 11:58 03/22/20 22:38 Hydrocodone/Acetaminophen 5/325 Mg Tablet PO 1 tab Q4H PRN Administration Moderate Pain (4-6) Hydrocodone Bitart/Acetaminophen 2 tab 03/21/20 11:58 03/23/20 04:55 Hydrocodone/Acetaminophen 5/325 Mg Tablet PO 2 tab Q4H PRN Administration Severe Pain (7-10) Albuterol/Ipratropium 3 ml 03/21/20 13:00 03/23/20 13:40 Ipratropium/Albuterol Sulfate 3 Ml Neb NEB 3 ml [id number] ANDREA Administration Aspirin 325 mg 03/22/20 09:00 03/23/20 08:46 Aspirin 325 Mg Tab PO 325 mg DAILY ANDREA Administration Atorvastatin Calcium 40 mg 03/22/20 21:00 03/22/20 20:09 Atorvastatin Calcium 40 Mg Tab PO 40 mg HS ANDREA Administration Famotidine 20 mg 03/22/20 21:00 03/23/20 08:46 Famotidine 20 Mg Tab PO 20 mg BID ANDREA Administration Fluticasone Propionate 1 gm 03/23/20 09:00 03/23/20 08:45 Fluticasone Propionate Nasal [place] 16 Gm Bottle NASAL 1 spr DAILY ANDREA Administration Furosemide 40 mg 03/23/20 09:00 03/23/20 08:46 Furosemide 40 Mg Tab PO 40 mg DAILY ANDREA Administration Ondansetron HCl 4 mg 03/21/20 11:58 03/21/20 13:47 Ondansetron Pf 4 Mg/2 Ml Vial IVP 4 mg Q6H PRN Administration Nausea/Vomiting Polyethylene Glycol 17 gm 03/22/20 09:00 03/23/20 08:46 Polyethylene Glycol 3350 17 Gm Packet PO Not Given DAILY ANDREA Potassium Chloride 10 meq 03/23/20 08:00 03/23/20 08:46 Potassium Chloride 10 Meq Tab PO 10 meq QAM-WM ANDREA Administration Sodium Chloride 10 ml 03/22/20 21:00 03/23/20 08:47 Flush - Normal Saline 10 Ml Syringe IVF 10 ml Q12HR ANDREA Administration Tamsulosin HCl 0.4 mg 03/23/20 09:00 03/23/20 08:46 Tamsulosin Hcl 0.4 Mg Cap PO 0.4 mg DAILY ANDREA Administration - Exam General Appearance: awake alert ENT: normocephalic atraumatic Neck: supple Heart: RRR, no rubs Respiratory: CTAB Gastrointestinal: soft, non-tender Skin: no rashes Psychiatric: normal affect, normal behavior Hosp A/P (1) Coronary artery disease Code(s): I25.10 - ATHSCL HEART DISEASE OF [place] CORONARY ARTERY W/O ANG PCTRS Status: Acute (2) Dyslipidemia Code(s): E78.5 - HYPERLIPIDEMIA, UNSPECIFIED Status: Chronic (3) Benign prostatic hyperplasia Code(s): N40.0 - BENIGN PROSTATIC HYPERPLASIA WITHOUT LOWER URINRY TRACT SYMP Status: Chronic (4) COPD (chronic obstructive pulmonary disease) Status: Chronic - Plan Status post coronary artery bypass graft today, patient is improving. Continue aspirin and statin. Chest tubes removed today. Ambulate patient. Likely home in 24 to 48 hours.
[2020-03-23] MEDS: Atorvastatin Calcium 40 MG TAB PO SCH (20:17)
[2020-03-24] MEDS: HYDROcodone/Acetaminophen 5/325 mg Tablet PO PRN ×2 (01:02→07:03)
[2020-03-24 07:42] VITALS: TEMP 98.2
[2020-03-24] MEDS: Famotidine 20 MG TAB PO SCH (09:32)
[2020-03-24] MEDS: Aspirin 325 MG TAB PO SCH (09:32)
[2020-03-24] MEDS: Potassium Chloride 10 MEQ TAB PO SCH (09:32)
[2020-03-24] MEDS: Fluticasone Propionate Nasal Spray 16 gm Bottle NASAL SCH (09:33)
[2020-03-24] MEDS: Furosemide 40 MG TAB PO SCH (09:33)
[2020-03-24] MEDS: Tamsulosin HCl 0.4 MG CAP PO SCH (09:33)
[2020-03-24] MEDS: Polyethylene Glycol 3350 17 GM Packet PO SCH (09:34)
--- NOTE | 2020-03-24 11:34 | PDOC.DS.DS ---
Provider - Provider Date of Admission: 03/20/20 14:42 Date of Discharge: 03/24/20 Admitting Provider: Ricardo Hill MD Consultations: Other (CV surgery: Dr. Romero) Primary Care Physician: Jonathon Yuen MD Course - Hospital Course Hospital Course: Discharge diagnosis: 1. Coronary artery disease 2. Status post coronary artery bypass graft during this hospitalization 3. Hyponatremia 4. COVID-19 PCR test negative Hospital course: Patient is a pleasant 74-year-old gentleman who was admitted to the hospital on March 20, 2020 for newly diagnosed coronary artery disease needing coronary artery bypass graft. He was seen by CV surgery service. On March 21 he underwent coronary artery bypass graft x3. He had an uneventful postoperative course and is being discharged home in a stable condition. Many thanks for allowing me to participate in your patient's care. Please feel free to contact me with any questions or concerns. Discharge destination: Home Total amount of time spent coordinating this discharge: 25 minutes. - Labs Lab Results: 03/23/20 04:17 03/23/20 04:17 Abnormal Lab Results - Last 48 hrs 03/20/20 16:33: Crossmatch See Detail 03/23/20 04:17: Sodium 135 L, Calcium 7.5 L 03/23/20 04:17: WBC 13.5 H, RBC 3.61 L, Hgb 11.5 L, Hct 34.3 L, MCH 31.7 H, Plt Count 112 L, Neutrophils % 78.2 H, Lymphocytes % 12.9 L, Neutrophils # 10.5 H, Monocytes # 1.0 H - Physical Exam Vitals: Vital Signs (12 hours) Temp Pulse Resp BP BP Pulse Ox 03/24/20 08:51 72 12 03/24/20 08:00 92 L 03/24/20 07:40 98.2 F 72 20 120/80 92 L 03/24/20 03:53 98.5 F 75 16 113/61 92 L 03/23/20 23:37 81 16 Weight Weight 221 lb 8 oz Most Recent Monitor Data Heart Rate from ECG 70 NIBP 111/55 NIBP BP-Mean 73 Respiration from ECG 24 SpO2 100 Physical Exam: The patient was seen and examined on the day of discharge. Patient denies chest pain or shortness of breath. Vital signs are stable. S1 and S2 are heard. Lungs are clear to auscultation bilaterally. Problem - Problem (1) Coronary artery disease Code(s): I25.10 - ATHSCL HEART DISEASE OF [place] CORONARY ARTERY W/O ANG PCTRS Status: Acute (2) Dyslipidemia Code(s): E78.5 - HYPERLIPIDEMIA, UNSPECIFIED Status: Chronic (3) Benign prostatic hyperplasia Code(s): N40.0 - BENIGN PROSTATIC HYPERPLASIA WITHOUT LOWER URINRY TRACT SYMP Status: Chronic (4) COPD (chronic obstructive pulmonary disease) Status: Chronic Plan - Discharge Medications Prescriptions: Furosemide [Lasix] 40 mg PO DAILY #14 tab HYDROcodone/Acetaminophen [[place] 5-325 Tablet] 2 each PO Q6H PRN #30 tablet PRN Reason: Pain Potassium Chloride 10 meq PO DAILY #14 tab Home Medications: Medication Instructions Recorded Confirmed Type Albuterol Sulfate [Albuterol 1 puff PO PRN PRN 04/14/19 03/20/20 History Sulfate Hfa] Aspirin [Children's Aspirin] 81 mg PO DAILY 03/20/20 03/20/20 History Atorvastatin Calcium 40 mg PO DAILY 03/20/20 03/20/20 History Tamsulosin HCl [Flomax] 0.4 mg PO DAILY 03/20/20 03/20/20 History Furosemide [Lasix] 40 mg PO DAILY #14 tab 03/24/20 Rx HYDROcodone/Acetaminophen [[place] 2 each PO Q6H PRN #30 tablet 03/24/20 Rx 5-325 Tablet] Potassium Chloride 10 meq PO DAILY #14 tab 03/24/20 Rx Allergies: procaine [From Novocain] Allergy (Severe, Verified 03/20/20 16:04) Anaphylaxis Penicillins Allergy (Verified 03/20/20 16:04) - Discharge Instructions Discharge Instructions:: ZONE TOOL - CORONARY ARTERY BYPASS GRAFT GREEN ZONE All Clear (GOAL): Occasional small pains in your breastbone - is normal healing! Soreness, aches and pains around your incision - is normal healing! Weak and easily tired; stiffness - is normal, move slowly! Incisions may be bruised, itchy, numb or sore - this is normal! Slight leg swelling - elevate your legs, move around once an hour for a few minutes! Common to feel a little depressed or frustrated, talk to family & friends, remain social! Doing Great! Able to tolerate 5 minutes walks - go longer every day! Schedule visit with surgeon to check incisions Schedule visit with [facility] to check health and adjust medications, if needed Continue visits with Primary Care Provider as recommended Weigh yourself daily - same time, same clothing! Shower daily - pat incisions dry, no lotions or oils! No driving until cleared by your CV surgeon Attend Cardiac Rehab as prescribed! Eat foods low in salt (Heart Healthy Diet) Take medicines as ordered Stop smoking ask your surgeon or doctor how YELLOW ZONE Warning - If you have the following: Fever of 100.4 degrees F (38 degrees C) or higher High blood pressure 150/95 or higher Unexplained chills or sweating Increasing pain that isnt controlled with medication Dizziness Swelling, redness, warmth, or cloudy discharge at incision Unexplained bruising or bleeding Continued sensation of motion or clicking sounds in your breastbone Sudden weight gain greater than 3 pounds in 1 day or greater than 5 pounds in 1 week! Act Today! Call your surgeon and tell them of your symptoms Eat a heart healthy diet, exercise and take your medications as directed Call your home health nurse: Phone # Or call your CV surgeon: Phone # RED ZONE Emergency Angina or chest pain like those you had before surgery Shortness of breath Fast or irregular heartbeat Fainting or syncope Any unusual bleeding Severe headache unrelieved with medications Any numbness or tingling in arms or legs Act NOW! Call 911 Call your CV surgeon: Phone # Nourishment:: Heart Healthy Diet - Follow up Plan Referrals: Cardiac Rehab - [place] [Outside] - 7 Days ( Your doctor has ordered outpatient cardiac rehab for you to begin within 1-2 weeks after you go home from the hospital. The location nearest to you is the [facility]. The front office in [place] will call you in 3-5 days to get you scheduled for your evaluation. If you do not receive a call, please reach out to them at [phone] and request an appointment. Should you have any trouble or need assistance, please call the cardiac rehab main line in [place] at [phone]. ) Jignesh Romero MD [Active] - (CALL AND SCHEDULE POST SURGERY FOLLOW UP APPT TO SEE DR ROMERO IN 2 WEEKS) Jairon Coleman MD [MD Not on Staff] - 14 Days (CALL AND SCHEDULE FOLLOW UP APPT TO SEE DR COLEMAN IN 2 WEEKS) Jonathon Yuen MD [Primary Care Provider] - 7 Days (CALL AND SCHEDULE FOLLOW UP APPT TO SEE DR YUEN IN 1 WEEK) Disposition: HOME Quality - Care Measures CORE MEASURES:: N/A
[2020-03-24 15:49] VITALS: BP 124/62
--- NOTE | 2020-03-24 22:32 | EKG ---
Test Reason : Blood Pressure : / mmHG Vent. Rate : 056 BPM Atrial Rate : 056 BPM P-R Int : 178 ms QRS Dur : 122 ms QT Int : 462 ms P-R-T Axes : 012 037 049 degrees QTc Int : 445 ms Sinus bradycardia Right bundle branch block Abnormal ECG No previous ECGs available Confirmed by Aparna GANDARA ([id number]) on 03/24/2020 10:32:33 PM Referred By: YUMIKO BELTRE Confirmed By:Aparna GANDARA
--- NOTE | 2020-03-24 22:37 | EKG ---
Test Reason : POST CABG Blood Pressure : / mmHG Vent. Rate : 074 BPM Atrial Rate : 074 BPM P-R Int : 174 ms QRS Dur : 124 ms QT Int : 450 ms P-R-T Axes : 044 -43 054 degrees QTc Int : 499 ms Normal sinus rhythm Left axis deviation Right bundle branch block Abnormal ECG When compared with ECG of 20-MAR-2020 20:21, (Unconfirmed) QRS axis Shifted left QT has lengthened Confirmed by Aparna GANDARA ([id number]) on 03/24/2020 10:36:43 PM Referred By: CHRISTINE Confirmed By:Aparna GANDARA
--- NOTE | 2020-03-26 08:50 | DIS ---
DATE OF ADMISSION: 03/20/2020 DATE OF DISCHARGE: 03/24/2020 The patient was admitted and underwent coronary artery bypass grafting on the day following admission, 03/21. He underwent bypass grafting to the LAD, diagonal, and PDA. His vein was somewhat large, but certainly suitable for grafting. He had quite hyperinflated lungs noted during surgery. Postoperative course, he had no arrhythmias. He had minimal coughing and his O2 saturations on room air were about 92%. He was getting dyspneic with walking, however, he was walking multiple times a day and had very few complaints. He will be discharged home on his admitting medicine plus he will get a 14-day course of Lasix 40 mg daily and potassium 10 mEq daily for a weight that is still about 5 pounds over preoperative levels and currently stands at about 222. His chest incision is healing nicely and he has no peripheral edema. Discharge and followup instructions have been given and he has also received a prescription for [place]. Job ID: [id number]
== END 2020-03-24 12:00 | disposition home or self-care (01) | DRG 236 ==
LOC: 2NO 14:42 → CCU 03-21 07:34 → 2NO 03-22 12:19
PROVIDERS: ADMIT Internal Medicine; ATTEND Internal Medicine
PROC: 02100Z9 Bypass Coronary Artery, One Artery from Left Internal Mammary, Open Approach (ICD-10-PCS; principal; 2020-03-21)
PROC: 021109W Bypass Coronary Artery, Two Arteries from Aorta with Autologous Venous Tissue, Open Approach (ICD-10-PCS; 2020-03-21)
PROC: 06BQ4ZZ Excision of Left Saphenous Vein, Percutaneous Endoscopic Approach (ICD-10-PCS; 2020-03-21)
PROC: 5A1221Z Performance of Cardiac Output, Continuous (ICD-10-PCS; 2020-03-21)
DX: I25.10 Atherosclerotic heart disease of native coronary artery without angina pectoris (principal); E87.1 Hypo-osmolality and hyponatremia; Z20.822 Contact with and (suspected) exposure to COVID-19; E78.5 Hyperlipidemia, unspecified; N40.0 Benign prostatic hyperplasia without lower urinary tract symptoms; J44.9 Chronic obstructive pulmonary disease, unspecified; F17.210 Nicotine dependence, cigarettes, uncomplicated; Z88.0 Allergy status to penicillin; Z88.8 Allergy status to other drugs, medicaments and biological substances; Z79.51 Long term (current) use of inhaled steroids; Z86.73 Personal history of transient ischemic attack (TIA), and cerebral infarction without residual deficits; Z79.899 Other long term (current) drug therapy; Z90.49 Acquired absence of other specified parts of digestive tract
CPT/HCPCS: 36415; 36416; 36430; 71045; 80048; 80053; 82805; 85025; 85610; 85730; 86850; 86900; 86901; 93005; 93010; 93798; 94002; 94150; 94640; C9113; J0690; J1265; J1642; J1644; J1815; J2001; J2250; J2270; J2405; J2704; J3010; J3370; J3475; J3490; J7620; P9045; S0028; U0002

== ENCOUNTER 2020-04-08 15:58 | Outpatient (CLI) | payer MEDICARE ==
--- NOTE | 2020-04-08 16:23 | RAD ---
Chest 2 views HISTORY: Chest pain. COMPARISON: 03/22/2020. FINDINGS: Cardiac silhouette and pulmonary vasculature are unremarkable. Mediastinum is midline with postoperative changes. No lobar consolidation or evidence of pneumothorax. Blunting of the left lateral costophrenic angle o n both views. IMPRESSION : Minimal left pleural fluid. Postoperative changes mediastinum.
== END 2020-04-08 15:59 | disposition home or self-care (01) ==
LOC: RAD 15:58
PROVIDERS: ATTEND Thoracic Surgery (Cardiothoracic Vascular Surgery)
DX: I25.110 Atherosclerotic heart disease of native coronary artery with unstable angina pectoris (principal); Z98.890 Other specified postprocedural states
CPT/HCPCS: 71046

== ENCOUNTER 2020-05-22 13:37 | Outpatient (CLI) | payer MEDICARE ==
--- NOTE | 2020-05-22 13:52 | RAD ---
EXAM: Chest PA and lateral: HISTORY: Dyspnea COMPARISON: 04/08/2020 FINDINGS: Evidence for a healing left sixth rib fracture with some bony callus. Heart size:Within normal limits. Lungs:Clear of acute process. No confluent pneumonia, overt edema, pleural effusion, or other acute process. IMPRESSION: Healing left sixth rib fracture.
== END 2020-05-22 13:38 | disposition home or self-care (01) ==
LOC: BICRAD 13:37
PROVIDERS: ATTEND Internal Medicine Pulmonary Disease
DX: R06.00 Dyspnea, unspecified (principal); S22.32XD Fracture of one rib, left side, subsequent encounter for fracture with routine healing
CPT/HCPCS: 71046

== ENCOUNTER 2020-09-11 12:44 | Outpatient (CLI) | payer MEDICARE ==
[2020-09-11 15:12] LABS: Anion Gap 13 mmol/L (10-20); BUN (Urea Nitrogen) 10 mg/dL (8.4-25.7); Calc. Creatinine Clearance 0 mL/min (70-130); Calcium 8.9 mg/dL (7.8-10.44); Carbon Dioxide 26 mmol/L (23-31); Chloride 105 mmol/L (98-107); Glucose 107 mg/dL (83-110); Potassium 4.3 mmol/L (3.5-5.1); Sodium 140 mmol/L (136-145)
[2020-09-11 15:14] LABS: Prothrombin Time 10.9 sec (9.5-12.1)
[2020-09-11 15:36] LABS: Hemoglobin 14.8 g/dL (13.5-17.5); Mean Corpuscular HGB CONC 32.6 g/dL (32.0-36.0); Mean Corpuscular Hemoglobin 29.4 pg (27.0-33.0); Mean Corpuscular Volume 90.1 fl (81.2-95.1); Mean Platelet Volume 9.8 fl (7.4-10.4); Platelet Count 240 10x3/uL (150-450); RBC Distribution Width 14.1 % (11.5-14.5); Red Blood Cell (RBC) Count 5.04 10x6/uL (4.32-5.72); White Blood Cell (WBC) Count 8.7 10x3/uL (3.5-10.5)
== END 2020-09-11 12:45 | disposition home or self-care (01) ==
LOC: LABBT 12:44
PROVIDERS: ATTEND Urology
DX: Z01.812 Encounter for preprocedural laboratory examination (principal); D49.4 Neoplasm of unspecified behavior of bladder; N21.0 Calculus in bladder
CPT/HCPCS: 80048; 85027; 85610; 85730

== ENCOUNTER 2020-09-16 09:58 | Day surgery (SDC) | payer MEDICARE ==
[2020-09-13 10:10] VITALS: BMI 31.5
[2020-09-16] MEDS ORDERED: mitoMYcin 40 MG in Sodium Chloride 0.9% 40 ML I-VESIC SCH (10:30)
[2020-09-16] MEDS ORDERED: Albuterol Sulfate 1.25 MG/3 ML NEB ONE ×2 (12:00→16:15)
[2020-09-16] MEDS ORDERED: CEFAZOLIN 2 GM in Premix Bag 1 BAG IVPB SCH (12:15)
[2020-09-16] MEDS ORDERED: Iothalamate Meglumine 60% 50 ML VIAL FS ONE (12:54)
[2020-09-16] MEDS ORDERED: Fentanyl 100 MCG/2 ML VIAL ONE (12:57)
[2020-09-16] MEDS ORDERED: PHENYLEPHRINE-NS 100 MCG/ML 10 ML SYRINGE ONE (13:10)
[2020-09-16] MEDS ORDERED: PROPOFOL 200 MG/20 ML VIAL ONE (13:10)
[2020-09-16] MEDS ORDERED: Dexamethasone 20 MG/5 ML VIAL ONE (13:10)
[2020-09-16] MEDS ORDERED: Labetalol HCl 100 MG/20 ML VIAL ONE (13:10)
[2020-09-16] MEDS ORDERED: Ondansetron PF 4 MG/2 ML Vial ONE (13:10)
[2020-09-16] MEDS ORDERED: Rocuronium Bromide 10 MG/ML (10ML VIAL) ONE (13:10)
[2020-09-16] MEDS ORDERED: Glycopyrrolate 0.2 MG/ML 5 ML SYRINGE ONE (13:10)
[2020-09-16] MEDS ORDERED: HYDROcodone/Acetaminophen 5/325 mg Tablet ONE (17:14)
== END 2020-09-16 18:18 | disposition home or self-care (01) ==
LOC: SDC 09:58
PROVIDERS: ATTEND Urology
PROC: 0T768DZ Dilation of Right Ureter with Intraluminal Device, Via Natural or Artificial Opening Endoscopic (ICD-10-PCS; principal; 2020-09-16)
PROC: 0TBB8ZX Excision of Bladder, Via Natural or Artificial Opening Endoscopic, Diagnostic (ICD-10-PCS; 2020-09-16)
DX: C67.3 Malignant neoplasm of anterior wall of bladder (principal); N21.0 Calculus in bladder; N13.1 Hydronephrosis with ureteral stricture, not elsewhere classified; N32.89 Other specified disorders of bladder; I25.10 Atherosclerotic heart disease of native coronary artery without angina pectoris; J44.9 Chronic obstructive pulmonary disease, unspecified; Z79.82 Long term (current) use of aspirin; Z79.899 Other long term (current) drug therapy; Z88.0 Allergy status to penicillin; Z88.4 Allergy status to anesthetic agent; Z95.1 Presence of aortocoronary bypass graft
CPT/HCPCS: 52235; 52332; 74420; 82365; 88300; 88305; C2617; J9280; Q9961; J0690; J1100; J2405; J2704; J3010

== ENCOUNTER 2021-08-06 15:39 | Outpatient (CLI) | payer MEDICARE | END 2021-08-06 15:40 | disposition home or self-care (01) | LOC: RAD 15:39 | PROVIDERS: ATTEND Internal Medicine Critical Care Medicine | DX: R06.00 Dyspnea, unspecified (principal) | CPT/HCPCS: 71046 ==

== ENCOUNTER 2023-12-08 14:38 | Outpatient (CLI) | payer MEDICARE, OTHER | END 2023-12-08 14:39 | disposition home or self-care (01) | LOC: ULT 14:38 | PROVIDERS: ATTEND Student in an Organized Health Care Education/Training Program | DX: I73.9 Peripheral vascular disease, unspecified (principal) | CPT/HCPCS: 93922 ==

== ENCOUNTER 2024-01-27 15:42 | Observation (INO) | payer MEDICARE ==
[2024-01-27 16:09] LABS: #Basophils 0.03 10x3/uL (0.0-0.2); %Basophils 0.4 % (0.0-1.0); %Lymphocytes 17.4 % (21.0-51.0); %Monocytes 6.5 % (0.0-10.0); %Neutrophils 73.3 % (42.0-75.0); Hematocrit 45.3 % (42.0-52.0); Hemoglobin 14.8 g/dL (14.0-18.0); Mean Corpuscular HGB CONC 32.7 g/dL (32.0-36.0); Mean Corpuscular Hemoglobin 30.3 pg (27.0-31.0); Mean Corpuscular Volume 92.6 fL (78.0-98.0); Mean Platelet Volume 9.6 fL (7.4-10.4); Platelet Count 193 10x3/uL (130-400); RBC Distribution Width 13.2 % (11.5-14.5); Red Blood Cell (RBC) Count 4.89 mill/uL (4.70-6.10)
[2024-01-27 16:35] LABS: ALT (SGPT) 23 U/L (8-55); AST (SGOT) 28 U/L (5-34); Alkaline Phosphatase 111 U/L (40-110); Anion Gap 13 mmol/L (10-20); BUN (Urea Nitrogen) 18 mg/dL (8.4-25.7); Bilirubin, Total 0.7 mg/dL (0.2-1.2); Calc. Creatinine Clearance 0 mL/min (70-130); Calcium 8.6 mg/dL (7.8-10.44); Carbon Dioxide 25 mmol/L (23-31); Chloride 101 mmol/L (98-107); Estimated GFR 55; Glucose 116 mg/dL (83-110); Potassium 3.7 mmol/L (3.5-5.1); Protein, Total 6.9 g/dL (5.8-8.1); Sodium 135 mmol/L (136-145)
[2024-01-27 16:46] LABS: Globulin 4.1 g/dL (2.4-3.5)
[2024-01-27] MEDS ORDERED: Acetaminophen 500 MG TAB ONE (17:25)
[2024-01-27] MEDS ORDERED: Milk Of Magnesia 30 ML UDCUP ONE (17:25)
[2024-01-27 17:42] LABS: Bilirubin Negative (Negative); Blood, Urine 2+ (Negative); CAUTI Indications for Culture Dysuria,urgency,freq; Clarity Turbid (Clear); Glucose, Urine (Dipstick) Normal (Negative); Ketone, Urine Negative (Negative); Leukocyte 500 Leu/uL (Negative); Nitrite Negative (Negative); Protein, Urine (Dipstick) 30 mg/dL (Neg-Trace); Specific Gravity, Urine 1.023 (1.002-1.036); Squamous Epithelial 0-3 HPF (0-3); Transitional Epithelial 0-3 HPF (None Seen); Urobilinogen 3 mg/dL (Less than 2); WBC/HPF Greater than 50 HPF (0-3); pH, Urine 5.5 (5.0-9.0)
[2024-01-27 17:44] LABS: Bacteria/HPF 1+ HPF (None Seen)
[2024-01-27 17:45] LABS: Urine Culture Reflex Yes Yes
[2024-01-27 18:47] LABS: Troponin I Less than 0.010 ng/mL (< 0.028)
[2024-01-27] MEDS: Meropenem 1 GM in Sodium Chloride 0.9% 100 ML IVPB SCH (22:26)
[2024-01-27 23:21] LABS: Troponin I Less than 0.010 ng/mL (< 0.028)
[2024-01-28] MEDS: Meropenem 1 GM in Sodium Chloride 0.9% 100 ML IVPB SCH (05:21)
[2024-01-28 05:29] VITALS: TEMP 97.8
[2024-01-28] MEDS: FLU (Fluad Triv) TS24-25 (65UP)/MF59C/PF 45 MCG/0.5 ML Syringe IM ONE (07:18)
[2024-01-28] MEDS: Enoxaparin 40 MG (0.4 mL) SYRINGE SC SCH (08:18)
[2024-01-28] MEDS: Mag-Al Plus 1200/1200/120 MG (30 mL) UDCUP PO PRN (08:59)
[2024-01-28 12:54] VITALS: BP 134/68
== END 2024-01-28 15:49 | disposition home or self-care (01) ==
LOC: ERS 15:42 → T4-B 20:24
PROVIDERS: ADMIT Internal Medicine; ATTEND Internal Medicine
DX: A41.9 Sepsis, unspecified organism (principal); R53.1 Weakness; N39.0 Urinary tract infection, site not specified; I25.10 Atherosclerotic heart disease of native coronary artery without angina pectoris; R30.0 Dysuria; N40.0 Benign prostatic hyperplasia without lower urinary tract symptoms; I11.0 Hypertensive heart disease with heart failure; I50.32 Chronic diastolic (congestive) heart failure; E78.5 Hyperlipidemia, unspecified; J44.9 Chronic obstructive pulmonary disease, unspecified; R79.89 Other specified abnormal findings of blood chemistry; Z86.73 Personal history of transient ischemic attack (TIA), and cerebral infarction without residual deficits; Z95.1 Presence of aortocoronary bypass graft
CPT/HCPCS: 71045; 80053; 81001; 83605; 83735; 83880; 84484 ×2; 85025; 87086; 93005; 96374; 96376; 99284; G0378 ×3; J2185 ×2; 36415; 93010

== ENCOUNTER 2024-03-28 12:35 | Outpatient (CLI) | payer MEDICARE, OTHER ==
[2024-03-28 13:49] LABS: #Basophils 0.05 10x3/uL (0.0-0.2); %Basophils 0.5 % (0.0-1.0); %Eosinophils 2.6 % (0.0-10.0); %Lymphocytes 22.1 % (21.0-51.0); %Neutrophils 69.4 % (42.0-75.0); Hematocrit 49.5 % (42.0-52.0); Hemoglobin 16.1 g/dL (14.0-18.0); Mean Corpuscular HGB CONC 32.5 g/dL (32.0-36.0); Mean Corpuscular Hemoglobin 30.4 pg (27.0-31.0); Mean Corpuscular Volume 93.4 fL (78.0-98.0); Mean Platelet Volume 9.5 fL (7.4-10.4); Platelet Count 260 10x3/uL (130-400); RBC Distribution Width 13.6 % (11.5-14.5)
[2024-03-28 14:08] LABS: Anion Gap 12 mmol/L (10-20); BUN (Urea Nitrogen) 13 mg/dL (8.4-25.7); Calc. Creatinine Clearance 0 mL/min (70-130); Calcium 9.3 mg/dL (7.8-10.44); Carbon Dioxide 30 mmol/L (23-31); Chloride 104 mmol/L (98-107); Estimated GFR 89; Glucose 92 mg/dL (83-110); Potassium 4.2 mmol/L (3.5-5.1); Sodium 142 mmol/L (136-145)
[2024-03-28 14:39] LABS: PTT 27.3 sec (22.9-36.1); Prothrombin Time 12.9 sec (12.0-14.7)
== END 2024-03-28 12:36 ==
LOC: LABBT 12:35
PROVIDERS: ATTEND Urology
DX: Z01.812 Encounter for preprocedural laboratory examination (principal); N40.1 Benign prostatic hyperplasia with lower urinary tract symptoms
CPT/HCPCS: 80048; 85025; 85610; 85730; 87086

== ENCOUNTER 2024-04-03 09:42 | Inpatient (IN) | payer MEDICARE ==
[2024-04-03] MEDS ORDERED: cefTRIAXone (ROCEPHIN) 2 GM VIAL ONE (11:11)
[2024-04-03] MEDS ORDERED: Sodium Chloride 0.9% 100 ML ONE (11:11)
[2024-04-03] MEDS ORDERED: Famotidine/PF 20 mg/2ml Vial ONE (11:11)
[2024-04-03] MEDS ORDERED: Ipratropium/Albuterol 3 ML NEB ONE ×2 (11:18→14:09)
[2024-04-03] MEDS ORDERED: Vasopressin 20 UNITS/ML VIAL ONE (12:06)
[2024-04-03] MEDS ORDERED: Dexamethasone 4 mg/ml Vial ONE (12:46)
[2024-04-03] MEDS ORDERED: fentaNYL PF 100 MCG/2 ML SYRINGE ONE ×2 (12:46→15:07)
[2024-04-03] MEDS ORDERED: Lidocaine 1% PF 5 ML VIAL ONE (12:46)
[2024-04-03] MEDS ORDERED: Rocuronium Bromide 10 MG/ML (10ML VIAL) ONE (12:46)
[2024-04-03] MEDS ORDERED: Ondansetron PF 4 MG/2 ML Vial ONE (12:46)
[2024-04-03] MEDS ORDERED: SUGAMMADEX SODIUM 200 MG/2 ML VIAL ONE (12:47)
[2024-04-03] MEDS ORDERED: PROPOFOL 40 ML ONE (12:47)
[2024-04-03] MEDS ORDERED: Lidocaine 2% PF 5 ML VIAL ONE (12:50)
[2024-04-03] MEDS ORDERED: PHENYLEPHRINE-NS 100 MCG/ML 10 ML SYRINGE ONE ×2 (13:04→13:29)
[2024-04-03] MEDS ORDERED: MINERAL OIL/WHITE PETROLATUM 3.5 GM TUBE ONE (13:10)
[2024-04-03] MEDS ORDERED: Acetaminophen 500 MG TAB PO PRN (13:47)
[2024-04-03] MEDS ORDERED: D5 1/2 NS w/20 mEq KCL 1,000 ML IV SCH (14:00)
[2024-04-03] MEDS ORDERED: Racepinephrine 2.25% 0.5 ML NEB ONE ×2 (15:12→15:18)
[2024-04-03] MEDS ORDERED: Sodium Chloride For Inhalation 0.9% 3 ML NEB ONE (15:14)
[2024-04-03] MEDS ORDERED: Midazolam HCl 2 mg/2 ml Vial ONE (15:18)
[2024-04-03] MEDS: Hyoscyamine SL 0.125 MG TAB SL PRN (17:21)
[2024-04-03] MEDS ORDERED: Acetaminophen/Codeine 30-300mg Tablet PO PRN (17:28)
[2024-04-03] MEDS: Acetaminophen/Codeine 30-300mg Tablet PO PRN (18:11)
[2024-04-03] MEDS ORDERED: hydrALAZINE 20 MG/ML VIAL SLOW IVP PRN (18:28)
[2024-04-03] MEDS: Docusate 100 MG CAP PO SCH (21:39)
[2024-04-03] MEDS: Ipratropium Bromide 2.5 ml Neb NEB SCH (21:41)
[2024-04-03] MEDS: Mometasone 200 MCG/Formoterol 5 MCG 120 PUFF INHALER INH SCH ×2 (21:42→21:43)
[2024-04-04] MEDS: D5 1/2 NS w/20 mEq KCL 1,000 ML IV SCH (02:25)
[2024-04-04 08:12] LABS: Hematocrit 44.5 % (42.0-52.0); Hemoglobin 14.3 g/dL (14.0-18.0); Mean Corpuscular HGB CONC 32.1 g/dL (32.0-36.0); Mean Corpuscular Hemoglobin 30.4 pg (27.0-31.0); Mean Corpuscular Volume 94.7 fL (78.0-98.0); Mean Platelet Volume 9.2 fL (7.4-10.4); Platelet Count 227 10x3/uL (130-400); RBC Distribution Width 13.5 % (11.5-14.5)
[2024-04-04 08:29] LABS: Anion Gap 11 mmol/L (10-20); BUN (Urea Nitrogen) 8 mg/dL (8.4-25.7); Calc. Creatinine Clearance 94 mL/min (70-130); Calcium 8.2 mg/dL (7.8-10.44); Carbon Dioxide 28 mmol/L (23-31); Chloride 104 mmol/L (98-107); Estimated GFR 83; Glucose 122 mg/dL (83-110); Potassium 4.2 mmol/L (3.5-5.1); Sodium 139 mmol/L (136-145)
[2024-04-04] MEDS: Rosuvastatin 10 MG TAB PO SCH (09:08)
[2024-04-04] MEDS: Metoprolol Succinate XL 25 MG ER.TAB PO SCH (09:08)
[2024-04-04 12:20] VITALS: BMI 33.5
[2024-04-04] MEDS: cefTRIAXone\\ROCEPHIN 1 GM in Sodium Chloride 0.9% 100 ML IVPB SCH (12:23)
[2024-04-04 16:28] VITALS: BP 137/83; TEMP 97.3
== END 2024-04-04 17:00 | disposition home or self-care (01) | DRG 713 ==
LOC: SDC 09:42 → SURG A 16:33
PROVIDERS: ADMIT Urology; ATTEND Urology
PROC: 0VT08ZZ Resection of Prostate, Via Natural or Artificial Opening Endoscopic (ICD-10-PCS; principal; 2024-04-03)
DX: N40.1 Benign prostatic hyperplasia with lower urinary tract symptoms (principal); N39.0 Urinary tract infection, site not specified; N32.0 Bladder-neck obstruction; C67.9 Malignant neoplasm of bladder, unspecified; J44.9 Chronic obstructive pulmonary disease, unspecified; F17.200 Nicotine dependence, unspecified, uncomplicated; I10 Essential (primary) hypertension; E78.5 Hyperlipidemia, unspecified; Z82.49 Family history of ischemic heart disease and other diseases of the circulatory system; Z80.0 Family history of malignant neoplasm of digestive organs; Z90.49 Acquired absence of other specified parts of digestive tract; Z88.4 Allergy status to anesthetic agent; Z88.0 Allergy status to penicillin; Z91.013 Allergy to seafood; Z86.73 Personal history of transient ischemic attack (TIA), and cerebral infarction without residual deficits; Z98.890 Other specified postprocedural states; Z79.82 Long term (current) use of aspirin; Z90.79 Acquired absence of other genital organ(s); Z79.899 Other long term (current) drug therapy
CPT/HCPCS: 36415; 80048; 85027; 88305; J0696; J1100; J2250; J2405; J2704; J3480; J3490; J7042; J7620; J7644